=== PATIENT | female | born 1960 | race American Indian/Alaskan Native ===

== ENCOUNTER 2021-12-15 04:06 | Emergency (ER) | payer MEDICAID ==
--- NOTE | 2021-12-15 04:54 | Event Note ---
ED Screening Note Date of service: 12/15/21 Time: 04:49 ED Screening Note: Patient is a 61-year-old -Maced[place] female with a history of fnm-xjjvher-ugddrmucz diabetes who presented to the ED with complaint of acute onset persistent dizziness, lightheadedness, tachycardia and generalized we akness for the last 2 weeks, and who also developed left-sided chest pain and shortness of breath about 2 hours prior to arrival in the ED. Patient states that prior to arrival in the ED she woke up with worsening left-sided chest pain, bilateral upper and lower extremity numbness and tingling and neck pain and almost had a syncopal episode while walking to the bathroom. Patient also complains of headache, cough with white phlegm, nausea and generalized weakness and fatigue. Patient denies syncope, seizures, fever, chills, sore throat, nasal and sinus congestion, abdominal pain, vomiting and diarrhea, traumatic injury or heavy lifting. This initial assessment/diagnostic orders/clinical plan/treatment(s) is/are subject to change based on patients health status, clinical progression and re- assessment by fellow clinical providers in the ED. Further treatment and workup at subsequent clinical providers discretion. Patient/guardian urged not to elope from the ED as their condition may be serious if not clinically assessed and managed. Initial orders include: CBC, CMP, EKG, troponin, chest x-ray and BNP
--- NOTE | 2021-12-15 05:15 | XRay Report ---
CHEST 1 VIEW 12/15/2021 5:00 AM INDICATION / CLINICAL INFORMATION: chest pain. COMPARISON: None available. FINDINGS: SUPPORT DEVICES: None. HEART / MEDIASTINUM: No significant abnormality. LUNGS / PLEURA: No significant pulmonary or pleural abnormality. No pneumothorax. ADDITIONAL FINDINGS: No significant additional findings. IMPRESSION: 1. No acute findings. Signer Name: Butch Marrero MD Signed: 12/15/2021 5:10 AM Workstation Name: [id number]
[2021-12-15 05:22] LABS: Basophils % (Auto) 0.5 % (0.0-1.8); Eosinophils # (Auto) 0.4 K/mm3 (0.0-0.4); Eosinophils % (Auto) 6.4 % (0.0-4.3); Hematocrit 42.7 % (30.3-42.9); Hemoglobin 13.9 gm/dl (10.1-14.3); Lymphocytes # (Auto) 2.8 K/mm3 (1.2-5.4); Mean Corpuscular HGB Conc 32 % (30-34); Mean Corpuscular Volume 86 fl (79-97); Monocytes # (Auto) 0.5 K/mm3 (0.0-0.8); Monocytes % (Auto) 7.1 % (0.0-7.3); Platelet Count 278 K/mm3 (140-440); Red Blood Count 4.98 M/mm3 (3.65-5.03); Red Cell Distribution Width 14.4 % (13.2-15.2)
[2021-12-15 05:41] LABS: Alanine Aminotransferase 13 units/L (7-56); BUN/Creatinine Ratio 23; Blood Urea Nitrogen 18 mg/dL (7-17); Calcium 9.3 mg/dL (8.4-10.2); Hemolysis Index 5
[2021-12-15] MEDS ORDERED: HYDROcodone/ACETAMINOPHEN 5-325 MG TAB PO ONE (06:16)
--- NOTE | 2021-12-15 08:38 | Emergency Department Report ---
ED Chest Pain HPI - General Chief Complaint: Chest Pain Stated Complaint: CP Time Seen by Provider: 12/15/21 06:09 Source: patient Mode of arrival: Ambulatory Limitations: No Limitations - History of Present Illness Initial Comments: Patient is a 61-year-old -[place]yr[place] female with a history of ddg-aaxpdni-fvlnqegbs diabetes who presented to the ED with complaint of acute onset persistent dizziness, lightheadedness, tachycardia and generalized we akness for the last 2 weeks, and who also developed left-sided chest pain and shortness of breath about 2 hours prior to arrival in the ED. Patient states that prior to arrival in the ED she woke up with worsening left-sided chest pain, bilateral upper and lower extremity numbness and tingling and neck pain and almost had a syncopal episode while walking to the bathroom. Patient also complains of headache, cough with white phlegm, nausea and generalized weakness and fatigue. -: week(s) Pain Radiation: none Severity scale (0 -10): 0 - Related Data On Oral Contraceptives: No Allergies Allergy/AdvReac Type Severity Reaction Status Date / Time No Known Allergies Allergy Unverified 12/15/21 04:09 Heart Score - HEART Score History: Slightly suspicious EKG: Normal Age: 45-65 Risk factors: 1-2 risk factors Troponin: < normal limit HEART Score: 2 - EKG Read Time Time EKG Completed: 08:37 EKG Read Time: 08:37 - Critical Actions Critical Actions: 0-3 pts:0.9-1.7%risk of adverse cardiac event.Candidate for discharge ED Review of Systems ROS: Stated complaint: CP Other details as noted in HPI ED Past Medical Hx - Past Medical History Previous Medical History?: No Hx Hypertension: No ED Physical Exam - General Limitations: No Limitations ED Course Vital Signs 12/15/21 04:11 Temperature 97.8 F Pulse Rate 80 Respiratory 18 Rate Blood Pressure 148/79 [Right] O2 Sat by Pulse 100 Oximetry ELIER score - Elier Score Age > 65: (0) No Aspirin use within the Past 7 Days: (0) No 3 or more CAD Risk Factors: (0) No 2 or more Angina events in past 24 hrs: (0) No Known CAD with more than 50% Stenosis: (0) No Elevated Cardiac Markers: (0) No ST Deviation Greater than 0.5mm: (0) No ELIER Score: 0 ED Medical Decision Making - Lab Data Result diagrams: 12/15/21 04:50 12/15/21 04:50 - EKG Data -: EKG Interpreted by Me EKG shows normal: sinus rhythm - EKG Data When compared to previous EKG there are: no significant change Interpretation: no acute changes Critical care attestation.: If time is entered above; I have spent that time in minutes in the direct care of this critically ill patient, excluding procedure time. ED Disposition Clinical Impression: Chest pain, Weakness Disposition: 01 HOME / SELF CARE / HOMELESS Is pt being admited?: No Does the pt Need Aspirin: No Condition: Stable Instructions: Nonspecific Chest Pain, Adult, Nonspecific Chest Pain, Adult, Ymre-sd-Yeve Referrals: PRIMARY CARE, [Primary Care Provider] - 3-5 Days MOISES DEE MD [Staff Physician] - 3-5 Days
[2021-12-15] MEDS ORDERED: POTASSIUM CHLORIDE ER 10 MEQ TAB PO NR ×2 (09:09)
[2021-12-15 10:48] VITALS: BP 127/52
== END 2021-12-15 10:55 | disposition home or self-care (01) ==
LOC: ED 04:06
DX: R07.9 Chest pain, unspecified (principal); R53.1 Weakness
CPT/HCPCS: 36415; 71045; 80053; 84484; 85025; 93005; 99283; 99284

== ENCOUNTER 2022-08-17 23:53 | Emergency (ER) | payer MEDICAID ==
--- NOTE | 2022-08-18 09:35 | Electrocardiograph Report ---
[facility] Test Date: 2022-08-18 Test Time: 00:15:22 Pat Name: JENNIFER NÚÑEZ Department: Room: Gender: F Medical Technologist: : 1960 Requested By: ED DOC Order Number: [id number] Reading MD: Jay Capellan Measurements Intervals [place] Rate: 76 P: 61 MI: 163 QRS: 54 QRSD: 97 T: 51 QT: 382 QTc: 430 Interpretive Statements Sinus rhythm Probable left atrial enlargement Compared to ECG 12/15/2021 06:35:48 Sinus bradycardia no longer present Electronically Signed On 08-18-2022 9:34:37 EDT by Jay Capellan
--- NOTE | 2022-08-18 11:04 | XRay Report ---
CHEST 2 VIEWS INDICATION / CLINICAL INFORMATION: SOB. COMPARISON: 12/15/2021 FINDINGS: SUPPORT DEVICES: None. HEART / MEDIASTINUM: No significant abnormality. LUNGS / PLEURA: No significant pulmonary or pleural abnormality. No pneumothorax. ADDITIONAL FINDINGS: No significant additional findings. IMPRESSION: 1. No acute findings. Signer Name: Nicolas Jones Jr, MD Signed: 08/18/2022 11:00 AM Workstation Name: [id number]
--- NOTE | 2022-08-18 11:22 | Emergency Department Report ---
HPI - General Chief Complaint: Dyspnea/Respdistress PUI?: No Time Seen by Provider: 08/18/22 11:05 - HPI HPI: 62-year-old obese with history of prediabetes, former tobacco abuse, female presents for evaluation of palpitations and shortness of breath. Patient states her symptoms been occurring only at night and she states "when I try to fall asleep I feel like I cannot breathe and then I wake up and feel anxious and my heart starts racing and pounding." She states she has no symptoms that occur during the daytime. She reports that her symptoms have been ongoing "for months" and she is followed up with her primary care doctor. Primary care doctor had ordered the patient to be placed on a Holter monitor but the patient states that she developed skin allergic reaction secondary to the skin adhesive used to hold her cardiac Holter monitor in place and therefore this was discontinued. She states she feels as though "my doctor is not listening to me." Patient states she recently returned from [facility] visiting her daughter and did not have symptoms. She denies any pain or swelling in her legs. She reports an intermittent cough which is productive of white phlegm. She reports she uses THC salve topically. She drinks fenugreek tea as well as matcha tea. She denies any illicit drug usage. No alcohol usage. Pain currently 0 out of 10. ED Past Medical Hx - Past Medical History Previous Medical History?: Yes Hx Hypertension: No Hx Asthma: Yes - Surgical History Past Surgical History?: Yes Hx Cholecystectomy: Yes ED Review of Systems ROS: Stated complaint: SOB/DIZZINESS Other details as noted in HPI Comment: All other systems reviewed and negative Physical Exam - Physical Exam Vital Signs: Vital Signs 08/18/22 00:21 Temperature 98.1 F Pulse Rate 80 Respiratory 18 Rate Blood Pressure 116/74 [Left] O2 Sat by Pulse 98 Oximetry General: Gen: pt is well appearing, no acute distress HEENT: Normocephalic atraumatic pupils equally round and reactive to light extraocular muscles intact sclera anicteric Neck: Full range of motion, no midline spinal tenderness palpation, no JVD, no carotid bruits, no nuchal rigidity CVS: S1-S2 regular rate and rhythm with no gallops rubs or murmurs, chest wall nontender Pulmonary: Patient has mild end expiratory wheezes in the lung bases bilaterally, no rales no rhonchi Abdomen: Soft nondistended nontender no guarding or rebound tenderness, no palpable deformities or step-offs, normal active bowel sounds, no hepatosplenomegaly, no pulsatile masses : Deferred Extremities: No cyanosis no clubbing no edema, intact distal peripheral pulses, Integumentary: Skin normal, no petechia no purpura no abscess no lacerations no evidence of trauma no evidence of infection Neuro: Patient is awake alert and oriented to person place time situation, mentating well, cranial nerves II through XII intact, no focal neurodeficits, sensation grossly tact Psych: Calm cooperative, mood affect normal ED Course Vital Signs 08/18/22 00:21 Temperature 98.1 F Pulse Rate 80 Respiratory 18 Rate Blood Pressure 116/74 [Left] O2 Sat by Pulse 98 Oximetry - Reevaluation(s) Reevaluation #1: 08/18/22 11:21 Patient reassessed. She is comfortable and well-appearing, she is speaking in full sentences, and denies any active chest pain shortness of breath difficulty breathing or palpitations. ED Medical Decision Making - Lab Data Result diagrams: 08/18/22 11:14 08/18/22 11:14 - EKG Data -: EKG Interpreted by Me EKG shows normal: sinus rhythm Rate: normal - EKG Data When compared to previous EKG there are: no significant change, previous EKG unavailable Interpretation: no acute changes 08/18/22 11:22 EKG interpreted by me: Ventricular rate 76 bpm. P waves are present and proceed every QRS complex. Intervals normal. No ST segment depressions or elevations. No T wave flatte tanja or inversions. No ectopic. No arrhythmia. Normal axis. Sinus rhythm. - Radiology Data Radiology results: report reviewed - Medical Decision Making Is a 62-year-old female presents for evaluation of several months of intermitt ent dyspnea while attempting to fall asleep. VSS. Labs wnl. Pt has mild end expiratory wheezes on exam. She is otherwise well appearing. Pt is currently waiting CT scan of chest to r/o obstructive pathology. Due to change in provider shift time @ 15:00, pt was signed out to Dr. Amos Davis for follow up of CT, and pt's final disposition. Critical care attestation.: If time is entered above; I have spent that time in minutes in the direct care of this critically ill patient, excluding procedure time. ED Disposition Clinical Impression: Dyspnea Disposition: 30 STILL A PATIENT Is pt being admited?: No Does the pt Need Aspirin: No Condition: Stable
[2022-08-18] MEDS ORDERED: SODIUM CHLORIDE 0.9% 1000 ML 1,000 ML IV ONE (11:26)
[2022-08-18 11:46] LABS: Basophils % (Auto) 0.6 % (0.0-1.8); Eosinophils # (Auto) 0.5 K/mm3 (0.0-0.4); Eosinophils % (Auto) 6.4 % (0.0-4.3); Hematocrit 42.2 % (30.3-42.9); Hemoglobin 13.5 gm/dl (10.1-14.3); Lymphocytes # (Auto) 3.6 K/mm3 (1.2-5.4); Mean Corpuscular HGB Conc 32 % (30-34); Mean Corpuscular Volume 87 fl (79-97); Monocytes # (Auto) 0.7 K/mm3 (0.0-0.8); Monocytes % (Auto) 8.1 % (0.0-7.3); Platelet Count 265 K/mm3 (140-440); Red Blood Count 4.87 M/mm3 (3.65-5.03); Red Cell Distribution Width 14.6 % (13.2-15.2)
[2022-08-18 12:14] LABS: Alanine Aminotransferase 19 units/L (7-56); Albumin 4.5 g/dL (3.9-5); Blood Urea Nitrogen 11 mg/dL (7-17); Calcium 9.7 mg/dL (8.4-10.2); Hemolysis Index 8
[2022-08-18 12:38] LABS: BUN/Creatinine Ratio 18
--- NOTE | 2022-08-18 16:38 | Cat Scan Report ---
CTA CHEST WITH CONTRAST INDICATION / CLINICAL INFORMATION: dyspnea 'chest pain, sob dyspnea, recent prolonged travel, wheezin g, r/o PE 100ml of [id number]. TECHNIQUE: Axial CT images were obtained through the chest after injection of 100 mL IV contrast. 3 p andi MIP and/or 3D reconstructions were produced. All CT scans at this location are performed using C T dose reduction for ALARA by means of automated exposure control. COMPARISON: None available. FINDINGS: PULMONARY EMBOLUS: None. THORACIC AORTA: Mild atherosclerotic calcification without acute abnormality. HEART: No significant abnormality. CORONARY ARTERY CALCIFICATION: Absent -- None. MEDIASTINUM / VAISHNAVI: No significant abnormality. PLEURA: No pleural effusion. No pneumothorax. LUNGS: Bilateral bronchial wall thickening, most pronounced in the lower lobes. No focal consolidatio n. ADDITIONAL FINDINGS: Multinodular thyroid goiter extending to the upper mediastinum. UPPER ABDOMEN: No acute findings. SKELETAL STRUCTURES: No significant osseous abnormality. IMPRESSION: 1. No CT evidence for pulmonary embolism. 2. Diffuse bronchial wall thickening, which can be seen with small airways disease. 3. Multinodular thyroid goiter extending to the upper mediastinum. Recommend further evaluation with nonemergent/outpatient thyroid ultrasound if this has not already been previously performed. Signer Name: Zhen Moreno MD Signed: 08/18/2022 4:34 PM Workstation Name: [id number]
[2022-08-18] MEDS ORDERED: DOXYCYCLINE 100 MG CAP PO ONE (22:44)
--- NOTE | 2022-08-19 09:44 | Vascular Lab Report ---
DUPLEX DOPPLER LOWER EXTREMITY VEINS, LEFT INDICATION: pain and swelling r/o dvt. TECHNIQUE: Duplex doppler imaging was performed through the veins of the left lower extremity using venous compr ession and other maneuvers. COMPARISON: None available. FINDINGS: Common femoral vein: Negative. Superficial femoral vein: Negative. Popliteal vein: Negative. Calf veins: Negative. Additional findings: None. IMPRESSION: Negative for DVT. Signer Name: Ephraim Real MD Signed: 08/19/2022 9:40 AM Workstation Name: [id number]
[2022-08-19 10:55] VITALS: BP 131/61
--- NOTE | 2022-08-19 11:03 | Emergency Department Report ---
Blank Doc - Documentation Documentation: Please note: This patient was signed out to Dr. Amos Davis @ 15:00 one day ago, on 08/18/22, secondary to change in provider shift time. I was just informed by the pt's Nurse that the patient is still in the emergency department and that need the patient needs a final disposition. In reviewing the patient's electronic health record, I do not see a follow up/sign out provider note written by Dr. Amos Davis. Nor do I see a provider note written by the overnight ER physician, Dr. Mckinney. This patient was not signed out to me at the time of the start of my shift this morning. Nevertheless, I was asked by the nursing staff to intervene, so that the patient may have a final disposition. MDM Per nursing staff, the patient had no overnight events. Vital signs are stable I assessed the patient independently. She is comfortable and well-appearing. She is in no distress. Diagnostic imaging results reviewed again. Labs reviewed as well. Patient is deemed stable for discharge to home. Prior to discharge she was given strict verbal and written return precautions. Patient verbalized understanding current plan of care. Of note: Patient had previously written discharge instructions and prescription written for her by .
== END 2022-08-19 11:36 | disposition still patient (30) ==
LOC: ED 23:53
DX: J45.909 Unspecified asthma, uncomplicated (principal)
CPT/HCPCS: 36415; 71046; 71275; 80053; 83880; 84443; 84484; 85025; 93971; 96360; 99284; J7030; Q9967